=== PATIENT | male | born 1975 | race Caucasian/White ===

== ENCOUNTER 2016-08-11 05:16 | Day surgery (SDC) | payer OTHER ==
[2016-08-11] MEDS ORDERED: LIDOCAINE 0.5% 50 ML SDV ONE (05:57)
[2016-08-11] MEDS ORDERED: LIDOCAINE 1% 5 ML SDV ONE (05:58)
[2016-08-11] MEDS ORDERED: ceFAZolin 2 GM/DEXTROSE 100 ML IV ONE (06:00)
[2016-08-11 06:31] LABS: % IMMATURE GRANULYOCYTES 0.3 % (0.0-1.1); ABSOLUTE IMMATURE GRANULOCYTES 0.03 10^3/uL (0.00-0.10); ADD DIFF? NO; ADD MORPH? NO; ADD SCAN? NO; ATYPICAL LYMPHOCYTE FLAG 20 (0-99); FRAGMENT RBC FLAG 0 (0-99); HEMATOCRIT 43.7 % (40.0-51.0); HEMOGLOBIN 15.7 g/dL (13.7-17.5); LEFT SHIFT FLG 0 (0-99); LIPEMIA HEMOLYSIS FLAG 90 (0-99); MEAN CELL HEMOGLOBIN 30.5 pg (27.9-34.1); MEAN CELL HEMOGLOBIN CONCENTR. 35.9 g/dL (32.4-36.7); MEAN CELL VOLUME 84.9 fL (81.5-99.8); MEAN PLATELET VOLUME 8.6 fL (8.7-11.7); PLATELET CLUMPS FLAG 0 (0-99); PLATELET COUNT 293 10^3/uL (150-400); RED BLOOD CELL COUNT 5.15 10^6/uL (4.40-6.38); RED CELL DISTRIBUTION WIDTH 11.9 % (11.5-15.2)
[2016-08-11] MEDS ORDERED: THROMBIN (RECOMBINANT) 5,000 UNIT VIAL TP ONE (06:53)
[2016-08-11] MEDS ORDERED: BUPIVACAINE/EPI 0.25% 30 ML SDV ONE (06:53)
[2016-08-11] MEDS ORDERED: BACITRACIN 50,000 UNITS/10 ML SYR IRR ONE (06:54)
[2016-08-11] MEDS ORDERED: MIDAZOLAM 2 MG/2 ML VIAL ONE (07:08)
[2016-08-11] MEDS ORDERED: KETAMINE 100 MG/10 ML SYR IVP ONE (07:09)
[2016-08-11] MEDS ORDERED: fentaNYL 100 MCG/2 ML INJ ONE ×2 (07:09→09:40)
[2016-08-11] MEDS ORDERED: REMIFENTANIL HCL 1 MG VIAL ONE (07:09)
[2016-08-11] MEDS ORDERED: PROPOFOL/EMULSION 500 MG/50 ML BOTTLE IV ONE (07:10)
[2016-08-11] MEDS ORDERED: PROPOFOL 200 MG/20 ML VIAL ONE ×2 (07:10→08:19)
[2016-08-11] MEDS ORDERED: LIDOCAINE 2% 5 ML SDV ONE (07:14)
[2016-08-11] MEDS ORDERED: DEXAMETHASONE 4 MG/ML VIAL ONE (07:14)
[2016-08-11] MEDS ORDERED: SUCCINYLCHOLINE CHLORIDE*ANESTHESIA ONLY*200 MG/10 ML SYR IVP ONE (09:05)
--- NOTE | 2016-08-11 09:14 | DX ---
Fluoroscopy Greater Than an Hour Clinical Indication: C5-C6 anterior fusion. Fluoroscopy Time: 6.7 seconds. Dose: 0.57 mGy. Findings: Single spot fluoroscopic image was provided showing an anterior fusion at the C5-C6 level w ith interbody disk spacer. Impression: Fluoroscopy provided for anterior cervical fusion.
[2016-08-11] MEDS ORDERED: DIAZEPAM 10 MG/2 ML SYR ONE (09:26)
[2016-08-11] MEDS ORDERED: HYDROmorphONE/DILAUDID 1 MG/ML SYR ONE (09:40)
--- NOTE | 2016-08-11 11:19 | GOP ---
[f rep st] OPERATIVE REPORT DATE OF OPERATION: 08/11/2016 SURGEON: Clifton Hernandez MD LIME SUPERVISOR: FIFI Harmon. ANESTHESIA: General endotracheal. 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 POSTOPERATIVE DIAGNOSIS: C5-6 disk herniation with intractable neck pain and cervical spondylitic my elopathy. PROCEDURE PERFORMED: Mini open exposure for C5-6 complete anterior cervical diskectomy and arthrodes is with an 11 mm structural allograft spacer, local autograft, and placement of a 23 mm LnK [place] -P anterior cervical plate with self-drilling screws. Use of intraoperative microscopy and fluorosco py. FINDINGS: ESTIMATED BLOOD LOSS: Trace. INDICATIONS: The patient is a 41-year-old man with intractable neck pain and myelopathic symptoms wh o was found to have a C5-6 disk herniation with significant central canal stenosis and spinal cord co mpression. He presents now for surgical decompression through a mini open approach. DESCRIPTION OF PROCEDURE: After informed consent was obtained, the patient was taken to the operatin g room, placed in the supine position with the head in the halter retractor system. The anterior cer vical region was prepped and draped in the sterile fashion. After fluoroscopic localization of corre ct levels, the subcutaneous and intramuscular tissues were infiltrated with local anesthesia. A hori zontal linear incision was then created at the level of the C5-6 interspace, after fluoroscopic local ization. This was carried through the platysmal layer using the monopolar electrocautery and carried in the avascular plane between the sternocleidomastoid and carotid sheath laterally, the strap muscl es, trachea and esophagus medially, down to the prevertebral fascia, which was carefully incised with Metzenbaum scissors. The C5-6 interspace was identified and re-verified using intraoperative fluoro scopy. The osteophyte was then carefully removed and harvested for local autograft. The [place] dist raction pins were carefully inserted and, while under distraction, a complete diskectomy was performe d with preparation of the endplates and removal of the posterior longitudinal ligament. Bilateral fo raminotomies were performed, and the posteriorly protruding osteophyte was also removed for adequate decompression of the central canal and the spinal cord. Following adequate decompression, the wound and disk space were copiously irrigated with antibiotic irrigation, and meticulous hemostasis was ach ieved. The remaining endplates were carefully prepared and an appropriately sized 11 mm lordotically fashioned structural allograft spacer and local autograft were gently packed in the interspace under fluoroscopic image guidance. The distraction was removed, and an appropriately sized 23 mm LnK [place]-P anterior cervical plate was then placed and secured with self-drilling screws. Following re- verification of good position of the plate, screws, and interbody spacer, using intraoperative fluoro scopy, the wound was again copiously irrigated, and meticulous hemostasis was achieved. The remainin g autograft from the osteophytectomy was then placed in the uncovertebral joint. A drain was placed. The subcutaneous and intramuscular tissues were re-infiltrated with local anesthesia, and the wound was closed in a layered fashion using interrupted Vicryl sutures followed by Steri-Strips on the ski n. COMPLICATIONS: None. DISPOSITION: The patient was extubated and transferred to the recovery room in stable condition. /[id number]/MODL
[2016-08-11] MEDS ORDERED: OXYCODONE/APAP 5/325 TAB ONE ×2 (13:47→14:46)
== END 2016-08-11 15:05 | disposition home or self-care (01) ==
LOC: FSGY 05:16
PROVIDERS: ATTEND Neurological Surgery
PROC: 4A1004G Monitoring of Central Nervous Electrical Activity, Intraoperative, Open Approach (ICD-10-PCS; principal; 2016-08-11 07:15)
PROC: 0RT30ZZ Resection of Cervical Vertebral Disc, Open Approach (ICD-10-PCS; principal; 2016-08-11 07:15)
PROC: 0RG10A0 Fusion of Cervical Vertebral Joint with Interbody Fusion Device, Anterior Approach, Anterior Column, Open Approach (ICD-10-PCS; principal; 2016-08-11 07:15)
DX: M50.022 Cervical disc disorder at C5-C6 level with myelopathy (principal); M47.12 Other spondylosis with myelopathy, cervical region
CPT/HCPCS: C1713; J0330; J0690; J1100; J1170; J2250; J2704; J3010